=== PATIENT | female | born 1960 | race Caucasian/White ===

== ENCOUNTER 2017-01-15 15:34 | Emergency (ER) | payer MEDICAID ==
[~2017-01-15] VITALS: Ht 152.4 cm; Wt 62.4 kg
[~2017-01-15 15:34] MED LIST: LANTUS SOLOS100 U/M1 SQ; LIPI10 PO; METFORMIN ER500 M1 PO
[2017-01-15 19:05] VITALS: BP 150/76
== END 2017-01-15 19:05 | disposition home or self-care (01) ==
LOC: ED 15:34
DX: K59.00 Constipation, unspecified (principal); R10.31 Right lower quadrant pain; E11.9 Type 2 diabetes mellitus without complications; Z79.4 Long term (current) use of insulin
CPT/HCPCS: J1885

== ENCOUNTER 2017-02-03 07:01 | Emergency (ER) | payer MEDICAID ==
[2017-02-03 08:57] VITALS: BP 120/64
== END 2017-02-03 08:57 | disposition home or self-care (01) ==
LOC: ED 07:01
DX: R10.9 Unspecified abdominal pain (principal); E11.9 Type 2 diabetes mellitus without complications; E78.00 Pure hypercholesterolemia, unspecified
CPT/HCPCS: 82962; J1100; J1885

== ENCOUNTER 2017-04-10 20:00 | Emergency (ER) | payer MEDICAID ==
[2017-04-10 21:05] LABS: BASOPHIL % 0.6 % (0-2); PLATELET COUNT 172 x10^3mcL (130-400); RED CELL DISTRIBUTION WIDTH 13.5 % (11.5-14.5)
[2017-04-10 21:23] LABS: ALKALINE PHOSPHATASE 178 U/L (46-116); ALT/SGPT 29 U/L (14-59); AST/SGOT 19 U/L (15-37); BILIRUBIN TOTAL 0.4 mg/dL (0.20-1.00); CALCIUM 9.5 mg/dL (8.5-10.1); CARBON DIOXIDE 26.7 mmol/L (21-32); CHLORIDE SERUM 100 mmol/L (98-107); GFR1 > 60 mL/min; LIPASE 227 IU/L (73-393); POTASSIUM SERUM 3.1 mmol/L (3.5-5.1); SODIUM SERUM 139 mmol/L (136-145); TOTAL PROTEIN, SERUM 8.1 g/dL (6.4-8.2)
[2017-04-10 21:31] LABS: GLUCOSE SERUM 58 mg/dL (74-106)
[2017-04-10 22:15] LABS: UA SPECIFIC GRAVITY 1.025 (1.005-1.035); microscopic required? YES
[2017-04-10 22:16] LABS: urine erythrocyte NEGATIVE (NEGATIVE)
[2017-04-10 22:50] VITALS: BP 127/65
== END 2017-04-10 22:50 | disposition home or self-care (01) ==
LOC: ED 20:00
PROVIDERS: Emergency Medicine
DX: R10.13 Epigastric pain (principal); M79.1 Myalgia; R11.0 Nausea; E11.9 Type 2 diabetes mellitus without complications; E78.00 Pure hypercholesterolemia, unspecified
CPT/HCPCS: 82962; J2270; Q0092; Q0162

== ENCOUNTER 2017-06-12 06:54 | Emergency (ER) | payer MEDICAID ==
[~2017-06-12] VITALS: Ht 160 cm; Wt 59.1 kg
[2017-06-12 07:50] LABS: microscopic required? NO
[2017-06-12 07:56] LABS: BASOPHIL % 0.5 % (0-2); PLATELET COUNT 175 x10^3mcL (130-400); RED CELL DISTRIBUTION WIDTH 14.4 % (11.5-14.5)
[2017-06-12 08:05] LABS: urine erythrocyte NEGATIVE (NEGATIVE)
[2017-06-12 08:08] LABS: CALCIUM 8.8 mg/dL (8.5-10.1); CARBON DIOXIDE 26.7 mmol/L (21-32); CHLORIDE SERUM 105 mmol/L (98-107); CREATININE SERUM 0.7 mg/dL (0.6-1.0); GFR1 > 60 mL/min; GLUCOSE SERUM 254 mg/dL (74-106); POTASSIUM SERUM 3.5 mmol/L (3.5-5.1); SODIUM SERUM 140 mmol/L (136-145)
[2017-06-12 08:13] LABS: ALKALINE PHOSPHATASE 164 U/L (46-116); ALT/SGPT 24 U/L (14-59); AST/SGOT 13 U/L (15-37); BILIRUBIN TOTAL 0.29 mg/dL (0.20-1.00); LIPASE 208 IU/L (73-393); URIC ACID 3.2 mg/dL (2.6-6.0)
[2017-06-12 08:15] LABS: ALBUMIN 3.3 g/dL (3.4-5.0)
[2017-06-12 08:37] VITALS: BP 138/88
== END 2017-06-12 09:01 | disposition home or self-care (01) ==
LOC: ED 06:54
PROVIDERS: Emergency Medicine
DX: M54.5 Low back pain (principal); E11.65 Type 2 diabetes mellitus with hyperglycemia; E78.00 Pure hypercholesterolemia, unspecified
CPT/HCPCS: 36415; J3010; Q0162

== ENCOUNTER 2017-08-23 06:35 | Emergency (ER) | payer MEDICAID ==
[2017-08-23 10:25] VITALS: BP 136/63
== END 2017-08-23 10:25 | disposition home or self-care (01) ==
LOC: ED 06:35
DX: M51.37 Other intervertebral disc degeneration, lumbosacral region (principal); E11.9 Type 2 diabetes mellitus without complications; I10 Essential (primary) hypertension; E78.00 Pure hypercholesterolemia, unspecified; Z90.49 Acquired absence of other specified parts of digestive tract
CPT/HCPCS: J1100; J1885

== ENCOUNTER 2017-10-25 21:50 | Inpatient (IN) | payer MEDICAID ==
[~2017-10-25] VITALS: Ht 162.6 cm; Wt 61.5 kg
[2017-10-25 23:20] LABS: UA SPECIFIC GRAVITY <=1.005 (1.005-1.035); microscopic required? YES; urine erythrocyte NEGATIVE (NEGATIVE)
[2017-10-25 23:25] LABS: CALCIUM 8.9 mg/dL (8.5-10.1); CARBON DIOXIDE 26.4 mmol/L (21-32); CHLORIDE SERUM 104 mmol/L (98-107); CREATININE SERUM 0.7 mg/dL (0.6-1.0); GFR1 > 60 mL/min; GLUCOSE SERUM 64 mg/dL (74-106); POTASSIUM SERUM 3.3 mmol/L (3.5-5.1); SODIUM SERUM 139 mmol/L (136-145)
[2017-10-25 23:28] LABS: BASOPHIL % 0.4 % (0-2); PLATELET COUNT 221 x10^3mcL (130-400); RED CELL DISTRIBUTION WIDTH 13.7 % (11.5-14.5)
[2017-10-25 23:38] LABS: ALBUMIN 3.5 g/dL (3.4-5.0); ALKALINE PHOSPHATASE 148 U/L (46-116); ALT/SGPT 40 U/L (14-59); AST/SGOT 19 U/L (15-37); BILIRUBIN TOTAL 0.2 mg/dL (0.20-1.00); FREE T4 1.11 ng/dL (0.76-1.46); MAGNESIUM 2.1 mg/dL (1.8-2.4); TOTAL PROTEIN, SERUM 6.9 g/dL (6.4-8.2)
[2017-10-26 02:05] LABS: AMYLASE 96 U/L (25-115); HDL CHOLESTEROL 44 mg/dL (40-60); LIPASE 163 IU/L (73-393); PHOSPHOROUS 4.5 mg/dL (2.5-4.9)
[2017-10-26 02:07] LABS: CHOLESTEROL 323 mg/dL (<200); CHOLESTEROL/HDL RATIO 7.3; TRIGLYCERIDES 551 mg/dL (<150)
[2017-10-26 03:06] VITALS: BP 136/69
[2017-10-26] MEDS ORDERED: ZESTRIL5 MG (03:50)
[2017-10-26] MEDS ORDERED: GEMFIBROZIL600 MG PO (03:51)
[2017-10-26] MEDS ORDERED: LIPI20 PO (03:52)
[2017-10-26 04:32] LABS: AMPHETAMINE QUAL UR NONE DETECTED (NEG <=1000)
[2017-10-26 06:07] VITALS: BP 122/62
[2017-10-26 09:07] VITALS: BP 138/67
[2017-10-26 14:14] VITALS: BP 112/57
[2017-10-26 17:01] VITALS: BP 106/41
[2017-10-26 20:47] VITALS: BP 121/57
[2017-10-27 06:15] VITALS: BP 122/59
[2017-10-27 08:39] VITALS: BP 123/56
[2017-10-27 08:49] VITALS: Ht 162.6 cm; Wt 61.5 kg
[2017-10-27 09:02] LABS: BASOPHIL % 0.5 % (0-2); PLATELET COUNT 194 x10^3mcL (130-400)
[2017-10-27 09:24] LABS: CALCIUM 8.3 mg/dL (8.5-10.1); CARBON DIOXIDE 23.5 mmol/L (21-32); CHLORIDE SERUM 110 mmol/L (98-107); CREATININE SERUM 0.7 mg/dL (0.6-1.0); GFR1 > 60 mL/min; GLUCOSE SERUM 311 mg/dL (74-106); POTASSIUM SERUM 4.7 mmol/L (3.5-5.1); SODIUM SERUM 143 mmol/L (136-145)
[2017-10-27 09:39] LABS: FREE T4 1.13 ng/dL (0.76-1.46); T4(THYROXINE) 7.8 ug/dL (4.7-13.3)
[2017-10-27 10:36] LABS: T3 TOTAL 0.82 ng/mL
[2017-10-27 12:30] VITALS: BP 132/53
[2017-10-27 16:47] VITALS: BP 101/51; BP 124/45
[2017-10-27 21:05] VITALS: BP 115/59
[2017-10-28 05:31] VITALS: BP 125/60
[2017-10-28 06:09] LABS: BASOPHIL % 0.4 % (0-2); PLATELET COUNT 195 x10^3mcL (130-400); RED CELL DISTRIBUTION WIDTH 13.9 % (11.5-14.5)
[2017-10-28 06:24] LABS: CALCIUM 8.6 mg/dL (8.5-10.1); CARBON DIOXIDE 24.5 mmol/L (21-32); CHLORIDE SERUM 110 mmol/L (98-107); CREATININE SERUM 0.6 mg/dL (0.6-1.0); GFR1 > 60 mL/min; GLUCOSE SERUM 196 mg/dL (74-106); MAGNESIUM 1.9 mg/dL (1.8-2.4); PHOSPHOROUS 4.1 mg/dL (2.5-4.9); POTASSIUM SERUM 4.5 mmol/L (3.5-5.1); SODIUM SERUM 144 mmol/L (136-145)
[2017-10-28 09:36] VITALS: BP 118/49
[2017-10-28 13:02] VITALS: BP 106/42
[2017-10-28 17:39] VITALS: BP 111/48
[2017-10-28 21:21] VITALS: BP 108/59
[2017-10-29 05:43] VITALS: BP 115/59
[2017-10-29 07:30] LABS: BASOPHIL % 0.4 % (0-2); PLATELET COUNT 193 x10^3mcL (130-400); RED CELL DISTRIBUTION WIDTH 14.3 % (11.5-14.5)
[2017-10-29 07:46] LABS: CALCIUM 8.9 mg/dL (8.5-10.1); CARBON DIOXIDE 26.2 mmol/L (21-32); CHLORIDE SERUM 105 mmol/L (98-107); CREATININE SERUM 0.6 mg/dL (0.6-1.0); GFR1 > 60 mL/min; GLUCOSE SERUM 192 mg/dL (74-106); MAGNESIUM 2.1 mg/dL (1.8-2.4); PHOSPHOROUS 4.2 mg/dL (2.5-4.9); POTASSIUM SERUM 4.2 mmol/L (3.5-5.1); SODIUM SERUM 139 mmol/L (136-145)
[2017-10-29 09:15] VITALS: BP 127/51
[2017-10-29 12:50] VITALS: BP 123/44
[2017-10-29 16:11] VITALS: BP 122/57
[2017-10-29 16:29] VITALS: BP 123/44
[2017-10-29] MEDS ORDERED: METFORMIN HYDR500 M1 PO (16:36)
[2017-10-29] MEDS ORDERED: COUMADIN5 MG PO (16:44)
[2017-10-29] MEDS ORDERED: LANTUS SOLOS100 U/M1 SQ (16:56)
== END 2017-10-29 18:35 | disposition home or self-care (01) | DRG 197 ==
LOC: ED 21:50 → DU 10-26 00:59
PROVIDERS: Emergency Medicine; Family Medicine; Student in an Organized Health Care Education/Training Program
DX: I82.432 Acute embolism and thrombosis of left popliteal vein (principal); E11.65 Type 2 diabetes mellitus with hyperglycemia; I10 Essential (primary) hypertension; M94.0 Chondrocostal junction syndrome [Tietze]; N39.0 Urinary tract infection, site not specified; E78.00 Pure hypercholesterolemia, unspecified; E87.6 Hypokalemia; E03.9 Hypothyroidism, unspecified; E78.2 Mixed hyperlipidemia; I25.10 Atherosclerotic heart disease of native coronary artery without angina pectoris; Z90.49 Acquired absence of other specified parts of digestive tract; Z79.84 Long term (current) use of oral hypoglycemic drugs; Z79.899 Other long term (current) drug therapy; Z98.891 History of uterine scar from previous surgery
CPT/HCPCS: 82962; 83880; 84439; 85378; J0696; J1644; J1815; J7030; J8597; Q0092

== ENCOUNTER 2018-01-06 07:07 | Emergency (ER) | payer MEDICAID ==
[~2018-01-06] VITALS: Ht 154.9 cm; Wt 65.8 kg
[~2018-01-06 07:07] MED LIST changes: +COUMADIN5 MG PO; +GEMFIBROZIL600 MG PO; +LIPI20 PO; +METFORMIN HYDR500 M1 PO; +ZESTRIL5 MG
[2018-01-06 07:16] VITALS: Ht 154.9 cm; Wt 65.8 kg
[2018-01-06 08:21] LABS: microscopic required? NO
[2018-01-06 08:35] LABS: BASOPHIL % 0.5 % (0-2); PLATELET COUNT 207 x10^3mcL (130-400); RED CELL DISTRIBUTION WIDTH 14.1 % (11.5-14.5)
[2018-01-06 08:38] LABS: CALCIUM 8.6 mg/dL (8.5-10.1); CHLORIDE SERUM 106 mmol/L (98-107); CREATININE SERUM 0.7 mg/dL (0.6-1.0); GFR1 > 60 mL/min; GLUCOSE SERUM 157 mg/dL (74-106); POTASSIUM SERUM 3.9 mmol/L (3.5-5.1); SODIUM SERUM 142 mmol/L (136-145)
[2018-01-06 08:42] LABS: ALKALINE PHOSPHATASE 156 U/L (46-116); ALT/SGPT 37 U/L (14-59); AST/SGOT 25 U/L (15-37); BILIRUBIN TOTAL 0.3 mg/dL (0.20-1.00); LIPASE 154 IU/L (73-393); TOTAL PROTEIN, SERUM 6.8 g/dL (6.4-8.2)
[2018-01-06 08:43] LABS: ALBUMIN 3.2 g/dL (3.4-5.0)
[2018-01-06 08:52] LABS: urine erythrocyte NEGATIVE (NEGATIVE)
[2018-01-06 09:23] VITALS: BP 139/76
== END 2018-01-06 09:23 | disposition home or self-care (01) ==
LOC: ED 07:07
PROVIDERS: Emergency Medicine
DX: R10.30 Lower abdominal pain, unspecified (principal); I10 Essential (primary) hypertension; E11.9 Type 2 diabetes mellitus without complications; Z90.89 Acquired absence of other organs
CPT/HCPCS: J1885

== ENCOUNTER 2018-02-03 10:30 | Inpatient (IN) | payer MEDICAID ==
[~2018-02-03] VITALS: Ht 162.6 cm; Wt 68.3 kg
[2018-02-03 10:49] VITALS: Ht 162.6 cm; Wt 68.3 kg
[2018-02-03 12:18] LABS: CALCIUM 8.8 mg/dL (8.5-10.1); CARBON DIOXIDE 26.3 mmol/L (21-32); CHLORIDE SERUM 106 mmol/L (98-107); CREATININE SERUM 0.8 mg/dL (0.6-1.0); GFR1 > 60 mL/min; GLUCOSE SERUM 276 mg/dL (74-106); POTASSIUM SERUM 3.9 mmol/L (3.5-5.1); SODIUM SERUM 140 mmol/L (136-145)
[2018-02-03 12:23] LABS: BASOPHIL % 0.5 % (0-2); PLATELET COUNT 202 x10^3mcL (130-400)
[2018-02-03 12:27] LABS: RED CELL DISTRIBUTION WIDTH 14.6 % (11.5-14.5)
[2018-02-03 12:30] LABS: ALKALINE PHOSPHATASE 153 U/L (46-116); ALT/SGPT 42 U/L (14-59); AMYLASE 85 U/L (25-115); AST/SGOT 27 U/L (15-37); BILIRUBIN TOTAL 0.25 mg/dL (0.20-1.00); HDL CHOLESTEROL 39 mg/dL (40-60); LIPASE 124 IU/L (73-393); T4(THYROXINE) 5.1 ug/dL (4.7-13.3); TOTAL PROTEIN, SERUM 6.7 g/dL (6.4-8.2)
[2018-02-03 12:32] LABS: ALBUMIN 3.2 g/dL (3.4-5.0); CHOLESTEROL 268 mg/dL (<200)
[2018-02-03 14:43] VITALS: BP 157/64
[2018-02-03 15:20] LABS: HDL CHOLESTEROL 39 mg/dL (40-60); MAGNESIUM 1.9 mg/dL (1.8-2.4); PHOSPHOROUS 4.2 mg/dL (2.5-4.9)
[2018-02-03 15:22] LABS: FREE T4 0.81 ng/dL (0.76-1.46); FREE THYROXINE INDEX 1.7 ug/dL (1.4-4.5); T4(THYROXINE) 5.5 ug/dL (4.7-13.3)
[2018-02-03 15:25] LABS: CHOLESTEROL 272 mg/dL (<200); TRIGLYCERIDES 406 mg/dL (<150)
[2018-02-03 17:46] VITALS: BP 144/60
[2018-02-03 20:33] VITALS: BP 139/84
[2018-02-03 23:08] LABS: T3 TOTAL 1.21 ng/mL
[2018-02-04 04:19] VITALS: BP 127/76
[2018-02-04 06:39] LABS: CALCIUM 8.9 mg/dL (8.5-10.1); CARBON DIOXIDE 21.6 mmol/L (21-32); CHLORIDE SERUM 107 mmol/L (98-107); CREATININE SERUM 0.7 mg/dL (0.6-1.0); GLUCOSE SERUM 222 mg/dL (74-106); POTASSIUM SERUM 4.3 mmol/L (3.5-5.1); SODIUM SERUM 139 mmol/L (136-145)
[2018-02-04 06:43] LABS: BASOPHIL % 0.2 % (0-2); PLATELET COUNT 189 x10^3mcL (130-400)
[2018-02-04 06:49] LABS: RED CELL DISTRIBUTION WIDTH 14.6 % (11.5-14.5)
[2018-02-04 08:00] VITALS: BP 135/70
[2018-02-04 13:16] VITALS: BP 139/71
[2018-02-04] MEDS ORDERED: COUMADIN5 MG PO (15:23)
[2018-02-04 16:04] VITALS: BP 146/63
== END 2018-02-04 18:22 | disposition home or self-care (01) | DRG 351 ==
LOC: ED 10:30 → DU 13:46
PROVIDERS: Emergency Medicine; Family Medicine Sports Medicine
DX: M75.102 Unspecified rotator cuff tear or rupture of left shoulder, not specified as traumatic (principal); N17.0 Acute kidney failure with tubular necrosis; R07.89 Other chest pain; M77.9 Enthesopathy, unspecified; M65.342 Trigger finger, left ring finger; E11.65 Type 2 diabetes mellitus with hyperglycemia; I82.532 Chronic embolism and thrombosis of left popliteal vein; I10 Essential (primary) hypertension; D64.9 Anemia, unspecified; Z79.01 Long term (current) use of anticoagulants; Z79.4 Long term (current) use of insulin; Z68.27 Body mass index [BMI] 27.0-27.9, adult
CPT/HCPCS: 82962; 83880; 84439; 97535-GP; J1100; J1885; J7030; Q0092

== ENCOUNTER 2018-02-13 12:56 | Emergency (ER) | payer MEDICAID ==
[~2018-02-13] VITALS: Ht 152.4 cm; Wt 67.1 kg
[2018-02-13 13:06] VITALS: Ht 152.4 cm; Wt 67.1 kg
[2018-02-13 15:25] LABS: BASOPHIL % 0.4 % (0-2); PLATELET COUNT 192 x10^3mcL (130-400)
[2018-02-13 15:26] LABS: RED CELL DISTRIBUTION WIDTH 14.6 % (11.5-14.5)
[2018-02-13 15:40] LABS: CALCIUM 8.6 mg/dL (8.5-10.1); CARBON DIOXIDE 26.6 mmol/L (21-32); CREATININE SERUM 1.3 mg/dL (0.6-1.0); POTASSIUM SERUM 4.3 mmol/L (3.5-5.1)
[2018-02-13 15:46] LABS: BILIRUBIN TOTAL 0.19 mg/dL (0.20-1.00); TOTAL PROTEIN, SERUM 6.7 g/dL (6.4-8.2)
[2018-02-13 15:47] LABS: ALBUMIN 3.3 g/dL (3.4-5.0)
[2018-02-13 15:52] VITALS: BP 142/74
== END 2018-02-13 16:27 | disposition home or self-care (01) ==
LOC: ED 12:56
PROVIDERS: Emergency Medicine
DX: R10.30 Lower abdominal pain, unspecified (principal); E11.9 Type 2 diabetes mellitus without complications; I10 Essential (primary) hypertension; Z90.49 Acquired absence of other specified parts of digestive tract
CPT/HCPCS: J1885

== ENCOUNTER 2018-03-02 20:56 | Emergency (ER) | payer MEDICAID ==
[~2018-03-02] VITALS: Ht 152.4 cm; Wt 67.6 kg
[2018-03-02 21:10] VITALS: Ht 152.4 cm; Wt 67.6 kg
[2018-03-02 22:21] LABS: CALCIUM 8.8 mg/dL (8.5-10.1); CARBON DIOXIDE 29.7 mmol/L (21-32); CHLORIDE SERUM 106 mmol/L (98-107); CREATININE SERUM 0.9 mg/dL (0.6-1.0); GFR1 > 60 mL/min; GLUCOSE SERUM 102 mg/dL (74-106); POTASSIUM SERUM 3.8 mmol/L (3.5-5.1); SODIUM SERUM 140 mmol/L (136-145)
[2018-03-02 22:31] LABS: BASOPHIL % 0.5 % (0-2); PLATELET COUNT 210 x10^3mcL (130-400); RED CELL DISTRIBUTION WIDTH 14.5 % (11.5-14.5)
[2018-03-02 22:34] LABS: ALBUMIN 3.5 g/dL (3.4-5.0); ALKALINE PHOSPHATASE 144 U/L (46-116); ALT/SGPT 12 U/L (14-59); AST/SGOT 24 U/L (15-37); BILIRUBIN TOTAL 0.28 mg/dL (0.20-1.00); TOTAL PROTEIN, SERUM 6.6 g/dL (6.4-8.2)
[2018-03-02 22:54] LABS: UA SPECIFIC GRAVITY <=1.005 (1.005-1.035); microscopic required? YES; urine erythrocyte NEGATIVE (NEGATIVE)
[2018-03-03 00:22] VITALS: BP 143/89
== END 2018-03-03 00:22 | disposition home or self-care (01) ==
LOC: ED 20:56
PROVIDERS: Emergency Medicine
DX: N39.0 Urinary tract infection, site not specified (principal); R60.9 Edema, unspecified; I10 Essential (primary) hypertension; E11.9 Type 2 diabetes mellitus without complications; E78.00 Pure hypercholesterolemia, unspecified
CPT/HCPCS: 36415; 83880; Q0092

== ENCOUNTER 2018-05-11 02:46 | Emergency (ER) | payer MEDICAID ==
[~2018-05-11] VITALS: Ht 160 cm; Wt 66.8 kg
[2018-05-11 03:03] VITALS: Ht 160 cm; Wt 66.8 kg
[2018-05-11 04:30] LABS: UA SPECIFIC GRAVITY <=1.005 (1.005-1.035); microscopic required? YES; urine erythrocyte NEGATIVE (NEGATIVE)
[2018-05-11 05:29] VITALS: BP 155/81
== END 2018-05-11 05:29 | disposition home or self-care (01) ==
LOC: ED 02:46
PROVIDERS: Emergency Medicine
DX: N39.0 Urinary tract infection, site not specified (principal); I10 Essential (primary) hypertension; E11.9 Type 2 diabetes mellitus without complications; E78.00 Pure hypercholesterolemia, unspecified

== ENCOUNTER 2018-06-18 21:37 | Emergency (ER) | payer MEDICAID ==
[~2018-06-18] VITALS: Ht 154.9 cm; Wt 65.8 kg
[2018-06-18 22:04] VITALS: Ht 154.9 cm; Wt 65.8 kg
[2018-06-19 00:12] VITALS: BP 123/72
== END 2018-06-19 00:12 | disposition home or self-care (01) ==
LOC: ED 21:37
DX: S80.11XA Contusion of right lower leg, initial encounter (principal); I10 Essential (primary) hypertension; E11.9 Type 2 diabetes mellitus without complications; E78.00 Pure hypercholesterolemia, unspecified; X58.XXXA Exposure to other specified factors, initial encounter; Y93.89 Activity, other specified; Y92.89 Other specified places as the place of occurrence of the external cause; Y99.8 Other external cause status
CPT/HCPCS: J1885; Q0092

== ENCOUNTER 2018-09-28 16:02 | Emergency (ER) | payer MEDICAID ==
[~2018-09-28] VITALS: Ht 152.4 cm; Wt 65.3 kg
[2018-09-28 16:18] VITALS: Ht 152.4 cm; Wt 65.3 kg
[2018-09-28 19:52] LABS: BASOPHIL % 0.4 % (0-2); PLATELET COUNT 194 x10^3mcL (130-400); RED CELL DISTRIBUTION WIDTH 14.1 % (11.5-14.5)
[2018-09-28 19:57] LABS: CALCIUM 8.9 mg/dL (8.5-10.1); CARBON DIOXIDE 29.5 mmol/L (21-32); CHLORIDE SERUM 104 mmol/L (98-107); CREATININE SERUM 0.7 mg/dL (0.6-1.0); GFR1 > 60 mL/min; GLUCOSE SERUM 104 mg/dL (74-106); POTASSIUM SERUM 4.1 mmol/L (3.5-5.1); SODIUM SERUM 142 mmol/L (136-145)
[2018-09-28 20:03] LABS: ALBUMIN 3.6 g/dL (3.4-5.0); ALKALINE PHOSPHATASE 150 U/L (46-116); ALT/SGPT 35 U/L (14-59); AST/SGOT 17 U/L (15-37); BILIRUBIN TOTAL 0.28 mg/dL (0.20-1.00); HDL CHOLESTEROL 47 mg/dL (40-60); PHOSPHOROUS 4.3 mg/dL (2.5-4.9); TOTAL PROTEIN, SERUM 7.3 g/dL (6.4-8.2); URIC ACID 3.8 mg/dL (2.6-6.0)
[2018-09-28 20:09] LABS: CHOLESTEROL 218 mg/dL (<200)
[2018-09-28 21:53] VITALS: BP 136/69
== END 2018-09-28 21:53 | disposition home or self-care (01) ==
LOC: ED 16:02
PROVIDERS: Emergency Medicine
DX: R07.89 Other chest pain (principal); R06.02 Shortness of breath; I10 Essential (primary) hypertension; E11.9 Type 2 diabetes mellitus without complications; E78.00 Pure hypercholesterolemia, unspecified
CPT/HCPCS: 36415; 85378; J1885

== ENCOUNTER 2018-11-10 10:21 | Emergency (ER) | payer MEDICAID ==
[~2018-11-10] VITALS: Ht 152.4 cm; Wt 64.9 kg
[2018-11-10 10:29] VITALS: Ht 152.4 cm; Wt 64.9 kg
[2018-11-10 11:10] VITALS: BP 145/79
== END 2018-11-10 11:10 | disposition home or self-care (01) ==
LOC: ED 10:21
DX: R07.89 Other chest pain (principal); M54.6 Pain in thoracic spine; R06.02 Shortness of breath; I10 Essential (primary) hypertension; E11.9 Type 2 diabetes mellitus without complications; E78.00 Pure hypercholesterolemia, unspecified
CPT/HCPCS: J1885

== ENCOUNTER 2019-02-22 12:32 | Emergency (ER) | payer MEDICAID ==
[~2019-02-22] VITALS: Ht 154.9 cm; Wt 66.2 kg
[2019-02-22 13:00] VITALS: Ht 154.9 cm; Wt 66.2 kg
[2019-02-22 15:22] VITALS: BP 143/64
== END 2019-02-22 15:22 | disposition home or self-care (01) ==
LOC: ED 12:32
DX: E11.65 Type 2 diabetes mellitus with hyperglycemia (principal); I10 Essential (primary) hypertension; E11.9 Type 2 diabetes mellitus without complications; E78.00 Pure hypercholesterolemia, unspecified; Z76.0 Encounter for issue of repeat prescription; Z90.49 Acquired absence of other specified parts of digestive tract
CPT/HCPCS: 82962; J1815

== ENCOUNTER 2019-04-26 13:43 | Emergency (ER) | payer MEDICAID ==
[~2019-04-26] VITALS: Ht 152.4 cm; Wt 67.1 kg
[2019-04-26 13:44] VITALS: Ht 152.4 cm; Wt 67.1 kg
[2019-04-26 15:46] LABS: BASOPHIL % 0.6 % (0-2); PLATELET COUNT 210 x10^3mcL (130-400); RED CELL DISTRIBUTION WIDTH 14.6 % (11.5-14.5)
[2019-04-26 15:58] LABS: ALBUMIN 3.7 g/dL (3.4-5.0); ALKALINE PHOSPHATASE 137 U/L (46-116); ALT/SGPT 24 U/L (14-59); AST/SGOT 17 U/L (15-37); BILIRUBIN TOTAL 0.25 mg/dL (0.20-1.00); CALCIUM 8.8 mg/dL (8.5-10.1); CARBON DIOXIDE 27.2 mmol/L (21-32); CHLORIDE SERUM 106 mmol/L (98-107); CREATININE SERUM 0.6 mg/dL (0.6-1.0); GFR1 > 60 mL/min; SODIUM SERUM 143 mmol/L (136-145); TOTAL PROTEIN, SERUM 7.7 g/dL (6.4-8.2)
[2019-04-26 16:01] LABS: GLUCOSE SERUM 49 mg/dL (74-106)
[2019-04-26 20:16] VITALS: BP 152/56
== END 2019-04-26 20:16 | disposition home or self-care (01) ==
LOC: ED 13:43
PROVIDERS: Emergency Medicine
DX: R07.89 Other chest pain (principal); M54.9 Dorsalgia, unspecified; R10.813 Right lower quadrant abdominal tenderness; E11.649 Type 2 diabetes mellitus with hypoglycemia without coma; I10 Essential (primary) hypertension; E78.00 Pure hypercholesterolemia, unspecified; Z90.89 Acquired absence of other organs; Z98.890 Other specified postprocedural states; V43.62XA Car passenger injured in collision with other type car in traffic accident, initial encounter; Y93.89 Activity, other specified; Y92.488 Other paved roadways as the place of occurrence of the external cause; Y99.8 Other external cause status
CPT/HCPCS: 82962; J1885; J3490; Q0092

== ENCOUNTER 2019-05-27 02:08 | Emergency (ER) | payer MEDICAID ==
[~2019-05-27] VITALS: Ht 165.1 cm; Wt 68.7 kg
[2019-05-27 02:17] VITALS: Ht 165.1 cm; Wt 68.7 kg
[2019-05-27 04:22] LABS: BASOPHIL % 0.4 % (0-2); PLATELET COUNT 202 x10^3mcL (130-400)
[2019-05-27 04:42] LABS: CALCIUM 8.7 mg/dL (8.5-10.1); CARBON DIOXIDE 28.7 mmol/L (21-32); CHLORIDE SERUM 105 mmol/L (98-107); CREATININE SERUM 0.7 mg/dL (0.6-1.0); GFR1 > 60 mL/min; GLUCOSE SERUM 126 mg/dL (74-106); POTASSIUM SERUM 4.4 mmol/L (3.5-5.1); SODIUM SERUM 140 mmol/L (136-145)
[2019-05-27 06:11] VITALS: BP 140/57
== END 2019-05-27 06:11 | disposition home or self-care (01) ==
LOC: ED 02:08
PROVIDERS: Emergency Medicine
DX: G44.209 Tension-type headache, unspecified, not intractable (principal)
CPT/HCPCS: J2270; J2405; J7030

== ENCOUNTER 2020-02-21 17:06 | Emergency (ER) | payer MEDICAID, SELFPAY ==
[~2020-02-21] VITALS: Ht 157.5 cm; Wt 63.5 kg
[2020-02-21 17:24] VITALS: Ht 157.5 cm; Wt 63.5 kg
[2020-02-21 17:53] LABS: BASOPHIL % 0.3 % (0-2); PLATELET COUNT 203 x10^3mcL (130-400); RED CELL DISTRIBUTION WIDTH 14.1 % (11.5-14.5)
[2020-02-21 18:15] LABS: CALCIUM 8.4 mg/dL (8.5-10.1); CARBON DIOXIDE 22.8 mmol/L (21-32); CHLORIDE SERUM 99 mmol/L (98-107); CREATININE SERUM 0.9 mg/dL (0.6-1.0); GFR1 > 60 mL/min; GLUCOSE SERUM 369 mg/dL (74-106); POTASSIUM SERUM 4.2 mmol/L (3.5-5.1); SODIUM SERUM 133 mmol/L (136-145)
[2020-02-21 18:28] LABS: ALKALINE PHOSPHATASE 118 U/L (46-116); ALT/SGPT 23 U/L (14-59); AST/SGOT 19 U/L (15-37); BILIRUBIN TOTAL 0.42 mg/dL (0.20-1.00); LACTIC DEHYDROGENASE (LDH) 296 U/L (100-190); TOTAL PROTEIN, SERUM 7.2 g/dL (6.4-8.2)
[2020-02-21 18:32] LABS: ALBUMIN 3.1 g/dL (3.4-5.0); C REACTIVE PROTEIN 19.2 mg/dL (<=0.9)
[2020-02-21 20:12] VITALS: BP 162/75
== END 2020-02-21 19:15 | disposition home or self-care (01) ==
LOC: ED 17:06
PROVIDERS: Emergency Medicine
DX: U07.1 COVID-19 (principal); J12.89 Other viral pneumonia; I10 Essential (primary) hypertension; E11.9 Type 2 diabetes mellitus without complications; E78.00 Pure hypercholesterolemia, unspecified; Z95.2 Presence of prosthetic heart valve; Z90.89 Acquired absence of other organs; Z98.890 Other specified postprocedural states
CPT/HCPCS: 83880; 85378; Q0092; U0003-CS